=== PATIENT | female | born 1985 | race Caucasian/White ===

== ENCOUNTER 2018-04-16 08:26 | Observation (INO) ==
[2018-04-16 01:30] LABS: Basophils % 0.3 %; Eosinophils # 0.1 K/mcL (0.0-0.6); Eosinophils % 1.2 %; Hematocrit 33.2 % (35.3-44.9); Hemoglobin 11.2 g/dL (11.5-15.4); Immature Granulocytes % 1.4 % (0-4); Lymphocytes # 2.4 K/mcL (0.6-4.6); Lymphocytes % 22.9 %; Mean Corpuscular HGB Conc 33.7 g/dL (31.6-35.5); Mean Corpuscular Hemoglobin 29.8 pg (28.0-33.3); Mean Corpuscular Volume 88.3 fL (83.0-100.0); Mean Platelet Volume 9.7 fL (9.4-12.4); Monocytes # 0.5 K/mcL (0.0-1.3); Monocytes % 5.1 %; Neutrophils # 7.2 K/mcL (1.6-8.9); Platelet Count 234 K/mcL (140-400); Red Blood Count 3.76 M/mcL (3.82-4.97); Red Cell Distribution Width 13.1 % (11.5-14.5); Segmented Neutrophils % 69.1 %
[2018-04-16 01:42] LABS: Bilirubin,Urine Negative (Negative); Blood,Urine Negative (Negative); Clarity,Urine Cloudy (Clear); Glucose,Urine (UA) Normal (Normal); Ketones,Urine 15 mg/dL (Negative); Leukocyte Esterase,Urine Moderate (Negative); Nitrite,Urine Positive (Negative); PH,Urine 6.5 pH Units (5.0-8.0); Protein,Urine Negative (Neg-Trace); Specific Gravity,Urine 1.018 (1.010-1.025); Urobilinogen,Urine Normal (Normal)
[2018-04-16 01:43] LABS: Bacteria,Urine None Seen per hpf (None-Few); Hyaline Casts,Urine None Seen per lpf (None-Few); RBC,Urine 0-3 per hpf (0-3); Squamous Epithelial Cell,Urine Moderate per lpf (None-Few); WBC,Urine 15-30 per hpf (0-3)
[2018-04-16 01:45] LABS: Color,Urine Dark Yellow (Yellow)
[2018-04-16 01:47] LABS: BUN/Creatinine Ratio 15 (6-26); Blood Urea Nitrogen 11 mg/dL (6-20); Calcium 9.2 mg/dL (8.6-10.3); Carbon Dioxide 21 mEq/L (23-29); Chloride 105 mEq/L (98-107); Glucose 93 mg/dL (70-105); Osmolality,Calculated 281 (280-300); Potassium 3.6 mEq/L (3.5-5.1); Sodium 136 mEq/L (136-145); eGFR For Non-African Americans > 60 (> 60)
[2018-04-16 01:50] LABS: Amphetamine Screen,Urine Negative ng/mL (Cutoff=1000); Barbiturate Screen,Urine Negative ng/mL (Cutoff=200); Benzodiazepines Screen,Urine Negative ng/mL (Cutoff=200); Cannabinoid Screen,Urine Negative ng/mL (Cutoff = 50); Cocaine Screen,Urine Negative ng/mL (Cutoff= 300); Opiate Screen,Urine Negative ng/mL (Cutoff=300); Phencyclidine Screen,Urine Negative ng/mL (Cutoff=25)
--- NOTE | 2018-04-16 01:54 | OB/GYN Progress Note ---
Date of Encounter: 04/16/18 Time of Encounter: 01:52 - Assessment and Plan (1) 21 weeks gestation of Current Visit: Yes Status: Acute (2) with flank pain, antepartum Current Visit: Yes Status: Acute Plan of care made in collaboration with Dr. Nathan RODRÍGUEZ BMP Renal ultrasound to rule out kidney stones We will medicate with oral pain medicine at this time Subjective - Subjective Interval history: 21+6 weeks gestation presents to triage with complaints of abdominal and back pain. Patient initially presented to the emergency room stating she felt like she was in labor and needed to push and have a baby. Patient brought down to labor and delivery after ER evaluation, Dr. Kwan in ED stated he felt cervix felt closed and patient was not at that time. Patient states she was treated in urgent care yesterday for UTI, was placed on antibiotics. Today was at home approximately 8 PM laying in bed and felt sudden onset lower back and abdominal pain, they continue to increase in intensity, also with complaints of gush of fluid. Reports good movement, denies vaginal bleeding. Patient also reports symptoms of dysuria and frequency Antepartum ROS: loss of fluid, movement normal, contractions, no vaginal bleeding Objective - Vital Signs Vital Signs: Intake and Output 04/15/18 04/15/18 04/16/18 15:59 23:59 07:59 Other: Weight 126.552 kg Patient Weight 04/16/18 23:59 Weight 126.552 kg - Exam FHR comments: heart tones present at 150s Abdomen: Present: soft, gravid, tenderness (Uterine fundus tender to touch) Uterus: Present: normal Cervical dilation: Closed/thick/high Speculum exam shows normal white discharge of Comments: Patient complains of back pain anywhere back in touch, positive CVA tenderness on bilateral flanks - Labs Labs: Abnormal lab results RBC 3.76 M/mcL (3.82-4.97) L 04/16/18 00:50 Hgb 11.2 g/dL (11.5-15.4) L 04/16/18 00:50 Hct 33.2 % (35.3-44.9) L 04/16/18 00:50 Carbon Dioxide 21 mEq/L (23-29) L 04/16/18 00:50 Urine Clarity Cloudy (Clear) A 04/16/18 01:25 Urine Ketones 15 mg/dL (Negative) H 04/16/18 01:25 Urine Nitrite Positive (Negative) A 04/16/18 01:25 Ur Leukocyte Esterase Moderate (Negative) H 04/16/18 01:25 Urine Microscopic WBC 15-30 per hpf (0-3) H 04/16/18 01:25 Ur Squamous Epith Cells Moderate per lpf (None-Few) H 04/16/18 01:25 Ur Culture Indicated? YES (NO) A 04/16/18 01:25
--- NOTE | 2018-04-16 05:11 | OB/GYN Progress Note ---
Date of Encounter: 04/16/18 Time of Encounter: 05:04 - Assessment and Plan (1) 21 weeks gestation of Current Visit: Yes Status: Acute (2) with flank pain, antepartum Current Visit: Yes Status: Acute Plan of care made in collaboration with Dr. Evans US unable to show ureteral jets due to low volume in bladder, with stone seen on left, no left hydronephrosis, physiologic on right Aferile, with no elevated white count Will start IV fluid at 125 Continue macrobid po Retroperitoneum Ultrasound 04/16/18 01:20 IMPRESSION: Mild right hydronephrosis. No visualized right renal stone. Nonobstructing left nephrolithiasis, 2.4 cm calculus. Urinary bladder is nondistended. Laboratory Results - last 24 hr 04/16/18 04/16/18 04/16/18 00:50 00:50 01:25 WBC 10.4 RBC 3.76 L Hgb 11.2 L Hct 33.2 L MCV 88.3 MCH 29.8 MCHC 33.7 RDW 13.1 Plt Count 234 MPV 9.7 Immature Gran % 1.4 Seg Neutrophils % 69.1 Lymphocytes % 22.9 Monocytes % 5.1 Eosinophils % 1.2 Basophils % 0.3 Neutrophils # 7.2 Lymphocytes # 2.4 Monocytes # 0.5 Eosinophils # 0.1 Basophils # 0.0 Sodium 136 Potassium 3.6 Chloride 105 Carbon Dioxide 21 L BUN 11 Creatinine 0.75 Est GFR ( Amer) > 60 Est GFR (Non-Af Amer) > 60 BUN/Creatinine Ratio 15 Glucose 93 Calculated Osmolality 281 Calcium 9.2 Urine Color Urine Clarity Urine pH Ur Specific [place] Urine Protein Urine Glucose (UA) Urine Ketones Urine Blood Urine Nitrite Urine Bilirubin Urine Urobilinogen Ur Leukocyte Esterase Urine Microscopic RBC Urine Microscopic WBC Ur Squamous Epith Cells Urine Bacteria Hyaline Casts Ur Culture Indicated? Urine Opiates Screen Negative Ur Barbiturates Screen Negative Ur Phencyclidine Scrn Negative Ur Amphetamines Screen Negative U Benzodiazepines Scrn Negative Urine Cocaine Screen Negative U Marijuana (THC) Screen Negative Ur Drug Screen Interp See Below 04/16/18 01:25 WBC RBC Hgb Hct MCV MCH MCHC RDW Plt Count MPV Immature Gran % Seg Neutrophils % Lymphocytes % Monocytes % Eosinophils % Basophils % Neutrophils # Lymphocytes # Monocytes # Eosinophils # Basophils # Sodium Potassium Chloride Carbon Dioxide BUN Creatinine Est GFR ( Amer) Est GFR (Non-Af Amer) BUN/Creatinine Ratio Glucose Calculated Osmolality Calcium Urine Color Dark Yellow Urine Clarity Cloudy A Urine pH 6.5 Ur Specific [place] 1.018 Urine Protein Negative Urine Glucose (UA) Normal Urine Ketones 15 H Urine Blood Negative Urine Nitrite Positive A Urine Bilirubin Negative Urine Urobilinogen Normal Ur Leukocyte Esterase Moderate H Urine Microscopic RBC 0-3 Urine Microscopic WBC 15-30 H Ur Squamous Epith Cells Moderate H Urine Bacteria None Seen Hyaline Casts None Seen Ur Culture Indicated? YES A Urine Opiates Screen Ur Barbiturates Screen Ur Phencyclidine Scrn Ur Amphetamines Screen U Benzodiazepines Scrn Urine Cocaine Screen U Marijuana (THC) Screen Ur Drug Screen Interp Subjective - Subjective Interval history: Continues to have pain and discomfort, nausea with emesis, afebrile Antepartum ROS: movement normal, no loss of fluid, no vaginal bleeding, no contractions Objective - Vital Signs Vital Signs: Intake and Output 04/15/18 04/15/18 04/16/18 15:59 23:59 07:59 Other: Weight 126.552 kg Patient Weight 04/16/18 23:59 Weight 126.552 kg - Exam Comments: bilateral flank pain - Labs Labs: Abnormal lab results RBC 3.76 M/mcL (3.82-4.97) L 04/16/18 00:50 Hgb 11.2 g/dL (11.5-15.4) L 04/16/18 00:50 Hct 33.2 % (35.3-44.9) L 04/16/18 00:50 Carbon Dioxide 21 mEq/L (23-29) L 04/16/18 00:50 Urine Clarity Cloudy (Clear) A 04/16/18 01:25 Urine Ketones 15 mg/dL (Negative) H 04/16/18 01:25 Urine Nitrite Positive (Negative) A 04/16/18 01:25 Ur Leukocyte Esterase Moderate (Negative) H 04/16/18 01:25 Urine Microscopic WBC 15-30 per hpf (0-3) H 04/16/18 01:25 Ur Squamous Epith Cells Moderate per lpf (None-Few) H 04/16/18 01:25 Ur Culture Indicated? YES (NO) A 04/16/18 01:25
[~2018-04-16 08:26] MED LIST: *HR* Morphine 2 MG/ML SYRINGE IVP PRN; *HR* OxyCODONE/APAP 5/325 TABLET PO ONE; Nitrofurantoin (BID) 100 MG CAPSULE PO SCH; Ondansetron 4 MG/2 ML VIAL IM ONE; Ondansetron 4 MG/2 ML VIAL IVP ONE; Ringers Solution, Lactated 1,000 ML IVC SCH
--- NOTE | 2018-04-16 09:40 | Urology - Consult Note ---
Addendum entered and electronically signed by Kwabena Barrientos MD 04/16/18 11:36: The patient was seen and examined with the physician's medical record assistant. I agree with the assessment and plan. This is a 33-year-old woman who is currently about 22 weeks . She presented with right flank pain which has become more severe. She had a renal ultrasound which showed right-sided hydronephrosis. Within the left kidney there appears to be a large renal stone, but no evidence of hydronephrosis. We discussed options. I reviewed further workup with a KUB versus low-dose CT scan. We discussed that she might have a stone that she could pass and could consider conservative therapy. We also discussed transfer to a tertiary care center. At 22 weeks her fetus may be viable. Our hospital policy is to avoid any anesthesia in patients from 22 weeks until 36 weeks gestation. Therefore, at this institution and we would not be able to perform any treatment such as a ureteroscopic stone extraction or stent placement. After this discussion, she would like to proceed with transfer to a tertiary center. Continue antibiotic. Await final results of urine culture. Thank you for allowing me to pursue a and this patient's care. Original Note: Date of Encounter: 04/16/18 Time of Encounter: 09:10 - Assessment and Plan (1) Nephrolithiasis Current Visit: Yes Status: Acute Assessment and plan: Patient is a 33-year-old female who presents with nephrolithiasis. Renal ultrasound suggests a 2.4 cm left renal calculus that is nonobstructing. Patient's pain is localized to the right flank. We may discuss definitive stone extraction for the left stone burden when the patient is . (2) with flank pain, antepartum Current Visit: Yes Status: Acute Assessment and plan: Patient is a 33-year-old female who presents with history of right flank pain and mild hydronephrosis. Discussed renal ultrasound is not the preferred method for identifying ureteral calculi. Patient has a known history of renal stones and states she was informed by an outside urologist regarding bilateral renal stones. We will continue with IV fluids, Tylenol and antibiotics. Dr. Javier oliva will reevaluate patient and provide stone treatment options. (3) 22 weeks gestation of Current Visit: Yes Status: Acute (4) UTI (urinary tract infection) in in second trimester Current Visit: Yes Status: Acute Assessment and plan: Patient is a 33-year-old female who presents with a urinary tract infection, c ulture positive for gram-positive cocci. Patient is currently taking Macrobid, which is less likely to be susceptible gram-positive cocci bacteria. Expressed concern to scooping machine tender as well as to the patient for ascending group B strep urinary tract infection. Vital signs are currently stable and afebrile. White blood cell count is reassuring. I do recommend stopping Macrobid and starting clindamycin for GBS prophylaxis at least until final urine culture sensitivity report is resulted. Patient is allergic to both penicillins and cephalosporins. Urology CN:[facility] Consult date: 04/16/18 Reason for consult Urology: Hydronephrosis (right flank pain) History of present illness: Patient is a 33-year-old female who presents at 22 weeks EGA with right flank pain and history of nephrolithiasis. Patient states she started experiencing UTI symptoms 2 days ago and was instructed by after hours SENIOR JAVA ARCHITECT to go to urgent care for urine culture. Patient was given oral Macrobid and has been taking this twice daily for 2 days. Patient states right flank pain acutely worsened yesterday and was accompanied by intractable nausea and vomiting. Patient presented to the emergency department and was subsequently transferred to the antepartum unit. Patient reports good movement and denies any vaginal bleeding, right upper quadrant pain, loss of fluid, vaginal discharge or contractions. Patient states she experienced gross hematuria 2-3 days ago but has not experienced this since. Patient reports she was diagnosed with renal stones approximately 1 year ago by a urologist in [place], but she failed to pursue further treatment. Patient underwent a renal ultrasound revealing mild right-sided hydronephrosis and a 2.4 cm stone burden that is nonobstructing in the left kidney. Preliminary urine culture from 04/14/2018 shows gram-positive cocci. Patient admits to a history of group B strep with her last . Patient states she is experienced an Escherichia coli urinary tract infection earlier in this as well. Past Med Surg Social Fam HX - Past Medical History Medical history: non-contributory Psychiatric history: no psych history - Past Surgical History Surgical History: Additional surgical history: t&a - Social History Smoking Status: Never smoker Smokeless Tobacco Status: No Alcohol use: none Drug use: none - Family History Mother Living Status: Still Living Hx Family Cardiac Disorders: No Hx Family Respiratory Disorders: No Hx Family Cancer: No Hx Family GI Disorders: No Hx Family Genitourinary Disorders: No Hx Family Endocrine Disorder: No Hx Family Musculoskeletal Disorders: No Hx Family Neuromuscular Disorders: No Hx Family Neurologic Disorders: No Hx Family HEENT Disorders: No Hx Family Autoimmune Disorders: No Hx Family Reproductive Disorders: No Hx Family Psychosocial Disorders: No Hx Family Medical Disorders: No Medications and Allergies Vit Calc,Iron,Folic [ Vitamins] 1 each PO DAILY #90 tablet 12/18/17 [Rx] Levothyroxine 50 mg 04/16/18 [History] Allergy/AdvReac Type Severity Reaction Status Date / Time cephalexin Allergy Diarrhea Verified 12/19/17 20:09 guaifenesin [From Mucinex] Allergy Difficulty Verified 02/18/18 01:18 Breathing Penicillins [PCN] Allergy Rash Verified 12/19/17 20:09 mycins Allergy Rash Uncoded 12/30/16 18:55 Review of Systems - Constitutional chills, no fatigue, no fever(s) - EENT Nose, mouth and throat: no dizziness, no headache(s) - Cardiovascular no chest pain, no dyspnea - Respiratory no cough, no dyspnea - Gastrointestinal nausea, vomiting, no abdominal pain, no change in bowel habits - Genitourinary Genitourinary: dysuria, flank pain, hematuria, no abnormal vaginal bleeding, no difficulty urinating, no difficulty voiding, no urinary frequency, no urinary hesitancy, no urinary incontinence, no urinary urgency, no vaginal discharge Menstruation: other (22 weeks EGA) - Musculoskeletal back pain, no muscle weakness - Integumentary no erythema, no rash - Neurological no confusion, no syncope - Psychiatric no anxiety, no confusion - Hematologic/Lymphatic no easy bleeding, no easy bruising - Allergic/Immunologic no throat swelling, no wheezing Exam - General physical appearance Present: well developed, no distress, no pain - Eyes Present: PERRL, normal ocular movement - ENT Present: normal nares, no hearing loss, no congestion - Neck Present: no masses, trachea midline - Respiratory Present: normal respiratory effort - Abdomen Abdomen: Present: soft, tender (right CVAT) - Integumentary Present: no rash, no growths - Neurologic Present: normal coordination Urology Results - Labs 04/16/18 00:50 04/16/18 00:50 Abnormal lab results RBC 3.76 M/mcL (3.82-4.97) L 04/16/18 00:50 Hgb 11.2 g/dL (11.5-15.4) L 04/16/18 00:50 Hct 33.2 % (35.3-44.9) L 04/16/18 00:50 Carbon Dioxide 21 mEq/L (23-29) L 04/16/18 00:50 Urine Clarity Cloudy (Clear) A 04/16/18 01:25 Urine Ketones 15 mg/dL (Negative) H 04/16/18 01:25 Urine Nitrite Positive (Negative) A 04/16/18 01:25 Ur Leukocyte Esterase Moderate (Negative) H 04/16/18 01:25 Urine Microscopic WBC 15-30 per hpf (0-3) H 04/16/18 01:25 Ur Squamous Epith Cells Moderate per lpf (None-Few) H 04/16/18 01:25 Ur Culture Indicated? YES (NO) A 04/16/18 01:25 Diabetes panel 04/16/18 Range/Units 00:50 Sodium 136 (136-145) mEq/L Potassium 3.6 (3.5-5.1) mEq/L Chloride 105 (98-107) mEq/L Carbon Dioxide 21 L (23-29) mEq/L BUN 11 (6-20) mg/dL Creatinine 0.75 (0.60-1.20) mg/dL Glucose 93 (70-105) mg/dL Calcium 9.2 (8.6-10.3) mg/dL Calcium panel 04/16/18 Range/Units 00:50 Calcium 9.2 (8.6-10.3) mg/dL Pituitary panel 04/16/18 Range/Units 00:50 Sodium 136 (136-145) mEq/L Potassium 3.6 (3.5-5.1) mEq/L Chloride 105 (98-107) mEq/L Carbon Dioxide 21 L (23-29) mEq/L BUN 11 (6-20) mg/dL Creatinine 0.75 (0.60-1.20) mg/dL Glucose 93 (70-105) mg/dL Calcium 9.2 (8.6-10.3) mg/dL Adrenal panel 04/16/18 Range/Units 00:50 Sodium 136 (136-145) mEq/L Potassium 3.6 (3.5-5.1) mEq/L Chloride 105 (98-107) mEq/L Carbon Dioxide 21 L (23-29) mEq/L BUN 11 (6-20) mg/dL Creatinine 0.75 (0.60-1.20) mg/dL Glucose 93 (70-105) mg/dL Calcium 9.2 (8.6-10.3) mg/dL All other labs normal. - Imaging US - kidney/bladder: report reviewed, image reviewed
[2018-04-16 09:59] VITALS: BP 117/79
--- NOTE | 2018-04-16 12:17 | Event Note ---
Date of Encounter: 04/16/18 Time of Encounter: 12:13 After discussing patient's case with Dr Green, Dr Barrientos, self, and patient, patient requests transfer of care to [facility]. Patient has had anaphylaxis to 2 antibiotics in the past and although it is recommended that she starts clindamycin, patient would like to start at [facility] due to the increased level in NICU care if she has an anaphylactic reaction to clindamycin (she has previously had a severe hive reaction to it in the past). Her pain is not well controlled without IV pain medication; she is afebrile. She has had 2 previous UTIs in this . She is seen by Dr Tenorio for her care. Dr Carlos Louis at [facility] has accepted her for transfer as of 04/16/18 at 1200 noon.
== END 2018-04-16 13:12 | disposition other institution (70) ==
LOC: 1NENULAB → 1NENUOBS 08:26
PROVIDERS: ADMIT Advanced Practice Midwife; ATTEND Advanced Practice Midwife

== ENCOUNTER → 2018-07-15 11:10 | Observation (INO) ==
[2018-07-15 09:52] LABS: Basophils # 0.1 K/mcL (0.0-0.2); Basophils % 0.5 %; Eosinophils # 0.1 K/mcL (0.0-0.6); Eosinophils % 1.1 %; Hematocrit 34.8 % (35.3-44.9); Hemoglobin 11.7 g/dL (11.5-15.4); Immature Granulocytes % 1.1 % (0-4); Mean Corpuscular HGB Conc 33.6 g/dL (31.6-35.5); Mean Corpuscular Hemoglobin 30.4 pg (28.0-33.3); Mean Corpuscular Volume 90.4 fL (83.0-100.0); Mean Platelet Volume 9.8 fL (9.4-12.4); Monocytes # 0.5 K/mcL (0.0-1.3); Monocytes % 4.8 %; Neutrophils # 8.1 K/mcL (1.6-8.9); Platelet Count 249 K/mcL (140-400); Red Blood Count 3.85 M/mcL (3.82-4.97); Red Cell Distribution Width 14.1 % (11.5-14.5); Segmented Neutrophils % 74.5 %
[2018-07-15 09:55] LABS: Bilirubin,Urine Negative (Negative); Blood,Urine Small (Negative); Color,Urine Yellow (Yellow); Glucose,Urine (UA) Normal (Normal); Ketones,Urine Negative (Negative); Leukocyte Esterase,Urine Small (Negative); Nitrite,Urine Negative (Negative); PH,Urine 6.5 pH Units (5.0-8.0); Protein,Urine Negative (Neg-Trace); Specific Gravity,Urine < 1.005 (1.010-1.025); Urobilinogen,Urine Normal (Normal)
[2018-07-15 09:58] LABS: Bacteria,Urine Few per hpf (None-Few); Hyaline Casts,Urine None Seen per lpf (None-Few); Squamous Epithelial Cell,Urine Many per lpf (None-Few); WBC,Urine 15-30 per hpf (0-3)
[2018-07-15 10:01] LABS: Clarity,Urine Slightly Hazy (Clear)
[2018-07-15 10:06] LABS: Amphetamine Screen,Urine Negative ng/mL (Cutoff=1000); Barbiturate Screen,Urine Negative ng/mL (Cutoff=200); Benzodiazepines Screen,Urine Negative ng/mL (Cutoff=200); Cannabinoid Screen,Urine Negative ng/mL (Cutoff = 50); Cocaine Screen,Urine Negative ng/mL (Cutoff= 300); Creatinine,Urine 111 mg/dL; Opiate Screen,Urine Negative ng/mL (Cutoff=300); Phencyclidine Screen,Urine Negative ng/mL (Cutoff=25); Protein/Creatinine Ratio,Urine 0.19 mg/mg (0.00-0.20)
[2018-07-15 10:50] LABS: Alanine Aminotransferase 7 Units/L (7-52); Aspartate Amino Transferase 15 Units/L (13-39); BUN/Creatinine Ratio 12 (6-26); Blood Urea Nitrogen 7 mg/dL (6-20); Lactate Dehydrogenase 199 Units/L (140-271); Uric Acid 5.9 mg/dL (2.3-7.6); eGFR For Non-African Americans > 60 (> 60)
--- NOTE | 2018-07-15 11:18 | OB/GYN Progress Note ---
Date of Encounter: 07/15/18 Time of Encounter: 11:15 - Assessment and Plan (1) 34 weeks gestation of Current Visit: Yes Status: Acute (2) Facial swelling Current Visit: Yes Status: Acute Face symptoms swelling resolved by admission. Normotensive. PIH labs negative. Discharged home with labor and when to return to triage precautions. Patient verbalizes understanding Subjective - Subjective Interval history: 34+5 weeks gestation presents to triage with complaints of facial swelling from nose to cheek on the right-hand side when waking up this morning, bilateral some swelling and wrist pain when awakening, denies headache, or blurry vision, does see bright floaters and visual field on occasion. Reports good movement, denies vaginal bleeding or leaking of fluid or contractions Antepartum ROS: movement normal, other, no loss of fluid, no vaginal bleeding, no contractions Objective - Vital Signs Vital Signs: Intake and Output 07/14/18 07/15/18 07/15/18 23:59 07:59 15:59 Other: Weight 127.323 kg Patient Weight 07/15/18 23:59 Weight 127.323 kg - Exam FHR: auscultation normal FHR comments: Baseline 135 Cervical dilation: Closed/thick/high - Labs Labs: Abnormal lab results Hct 34.8 % (35.3-44.9) L 07/15/18 09:20 0.57 mg/dL (0.60-1.20) L 07/15/18 09:20 Ur Specific [place] < 1.005 (1.010-1.025) L 07/15/18 09:20 Small (Negative) H 07/15/18 09:20 Ur Leukocyte Esterase Small (Negative) H 07/15/18 09:20 3-5 per hpf (0-3) H 07/15/18 09:20 15-30 per hpf (0-3) H 07/15/18 09:20 Ur Squamous Epith Cells Many per lpf (None-Few) H 07/15/18 09:20 21 mg/dL (1-14) H 07/15/18 09:25
== END | disposition home or self-care (01) ==
LOC: 1NENULAB
PROVIDERS: ADMIT Student in an Organized Health Care Education/Training Program; ATTEND Student in an Organized Health Care Education/Training Program

== ENCOUNTER 2018-08-17 05:35 | Inpatient (IN) ==
[2018-08-17] MEDS ORDERED: Famotidine 20 MG/2 ML VIAL IVP PRN (05:57)
[2018-08-17] MEDS ORDERED: Ondansetron 4 MG/2 ML VIAL IVP PRN ×3 (05:57→11:37)
[2018-08-17] MEDS ORDERED: Metoclopramide 10 MG/2 ML VIAL IVP PRN ×2 (05:57→11:37)
[2018-08-17] MEDS ORDERED: Naloxone 0.4 MG/ML INJ IVP PRN (05:57)
[2018-08-17] MEDS ORDERED: Ringers Solution, Lactated 1,000 ML IVC SCH (06:00)
[2018-08-17 06:50] LABS: Basophils % 0.3 %; Eosinophils # 0.1 K/mcL (0.0-0.6); Hematocrit 35.5 % (35.3-44.9); Hemoglobin 11.8 g/dL (11.5-15.4); Immature Granulocytes % 0.9 % (0-4); Lymphocytes # 2.5 K/mcL (0.6-4.6); Lymphocytes % 21.4 %; Mean Corpuscular HGB Conc 33.2 g/dL (31.6-35.5); Mean Corpuscular Hemoglobin 29.3 pg (28.0-33.3); Mean Corpuscular Volume 88.1 fL (83.0-100.0); Mean Platelet Volume 9.7 fL (9.4-12.4); Monocytes # 0.6 K/mcL (0.0-1.3); Monocytes % 5.1 %; Neutrophils # 8.2 K/mcL (1.6-8.9); Platelet Count 269 K/mcL (140-400); Red Blood Count 4.03 M/mcL (3.82-4.97); Red Cell Distribution Width 13.6 % (11.5-14.5); Segmented Neutrophils % 71.3 %; White Blood Count 11.5 K/mcL (4.3-11.1)
[2018-08-17 07:00] LABS: Amphetamine Screen,Urine Negative ng/mL (Cutoff=1000); Barbiturate Screen,Urine Negative ng/mL (Cutoff=200)
[2018-08-17 07:01] LABS: Benzodiazepines Screen,Urine Negative ng/mL (Cutoff=300); Cannabinoid Screen,Urine Negative ng/mL (Cutoff = 50); Cocaine Screen,Urine Negative ng/mL (Cutoff= 300); Opiate Screen,Urine Negative ng/mL (Cutoff=300); Phencyclidine Screen,Urine Negative ng/mL (Cutoff=25)
--- NOTE | 2018-08-17 07:01 | Anesthesia Evaluation PreOp ---
Date of Encounter: 08/17/18 Time of Encounter: 06:59 - Past History Planned Operation: Repeat C section Cardiac History: Denies any Significant Hx Pulmonary History: Denies Any Significant HX DUTY ENGINEER History: Denies Any Significant HX Other Medical History: Renal (stones), Thyroid, GERD Anesthesia History: No Prior Anesthetic Complications, Past Anesthesia (csx4, tonsil) : Yes Test: Positive Alcohol Use: none Drug use: none Medications and Allergies Vit Calc,Iron,Folic [ Vitamins] 1 each PO DAILY #90 tablet 12/18/17 [Rx] Levothyroxine 0.5 mg PO DAILY 04/16/18 [History] Allergy/AdvReac Type Severity Reaction Status Date / Time azithromycin [From Zithromax] Allergy Hives Verified 08/17/18 06:13 cephalexin Allergy Anaphylaxis Verified 07/15/18 09:09 clindamycin Allergy Hives Verified 08/17/18 06:13 Erythromycin Base Allergy Hives Verified 08/17/18 06:13 guaifenesin [From Mucinex] Allergy Difficulty Verified 02/18/18 01:18 Breathing Penicillins [PCN] Allergy Rash Verified 12/19/17 20:09 mycins Allergy Anaphylaxis Uncoded 08/17/18 06:13 - Meds/Allergy Pre-op Review Medications Reviewed: Yes Allergies Reviewed: Yes Beta Blockers on Current Med List: No Anesthesia Results - Labs 08/17/18 06:25 Anesthesia Exam Vital Signs/O2 Sat, Most Current Pulse Resp BP 112 15 122/73 08/17/18 06:15 08/17/18 06:15 08/17/18 06:15 Height: 5'6" Weight: 130k NPO (# of Hours): 8 Pain Scale: 1 Pain Scale Used: Numeric (1 - 10) - HEENT Pupil (Motor): Pupils equal Mallampati: III Teeth: Missing Oral Opening: Greater than 3 - DUTY ENGINEER LOC: Oriented DUTY ENGINEER Motor: Normal RUE, Normal LUE, Normal RLE, Normal LLE, Normal Face DUTY ENGINEER Sensory: Normal: RUE, LUE, RLE, LLE, Face - Cardiac Rhythm: Regular Murmur: None - Pulmonary Breath Sounds: bilateral Clear Respiratory Effort: Symmetrical Anesthesia Assess/Plan ASA Score: 3 Level of consciousness: Cooperative Anesthetic Plan: Spinal (risks discussed, questions answered, consented) Autologous Blood: No Monitoring Plan: Standard Monitors Recovery Plan: PACU
[2018-08-17] MEDS ORDERED: *HR* Morphine Sulfate/PF 10 MG/10 ML AMPUL ONE (07:06)
[2018-08-17] MEDS ORDERED: *HR* Oxytocin 10 UNIT/ML VIAL IM ONE (07:06)
[2018-08-17] MEDS ORDERED: *HR* FentaNYL (PF) 100 MCG/2 ML VIAL ONE (07:06)
--- NOTE | 2018-08-17 07:15 | OB/GYN History & Physical ---
Date of Encounter: 08/17/18 Time of Encounter: 07:12 Assessment and Plan (1) Nephrolithiasis Current visit: No Status: Acute (2) 39 weeks gestation of Current visit: Yes Status: Acute (3) Previous section Current visit: Yes Status: Acute (4) Encounter for sterilization Current visit: Yes Status: Acute (5) Delivery by (planned) section occurring after 37 completed weeks of gestation but before 39 completed weeks gestation due to (spontaneous) onset of labor, with mention of complication Current visit: Yes Status: Acute History of Present Illness Chief complaint: repeat HPI: Ms. Francois is a 33 year old female who presents today for a section and tubal ligation. She is doing well. She is having no complaints of any kind today. She denies issues with her breasts. She denies gynecologic infection or discharge. She is having no abnormal bleeding. There are no issues with her bowels or bladder. Baby is been very active. This patient has been noncompliant throughout her . Induction of her multiple visits. She has allergies to Zithromax, penicillin, erythromycin, latex, clindamycin and Keflex. We had discussion about antibiotic today. She states that she did well with the clindamycin at [facility] when she was given it. Since that she take Benadryl with it had no problems. Current medications include vitam ins, levothyroxine, Benadryl. Chronic medical conditions include history of pyelonephritis, kidney stones anxiety, bipolar disorder and acquired hypothyroidism surgical history includes 4 previous sections, wisdom teeth extraction, tonsillectomy, bilateral eye surgery, colon surgery as a child family history significant for hypertension and heart disease and mental illness. Past Med Surg Social Fam HX - Past Medical History Medical history: no medical history Additional medical history: hypothyroidism during Psychiatric history: anxiety, PTSD - Past Surgical History Surgical History: Additional surgical history: t&a, eye surgery as a child, wisdom teeth, tonsil abcess - Social History Smoking Status: Former smoker Smokeless Tobacco Status: No Alcohol use: none Drug use: none - Family History Mother Living Status: Still Living Hx Family Cardiac Disorders: No Hx Family Respiratory Disorders: No Hx Family Cancer: No Hx Family GI Disorders: No Hx Family Genitourinary Disorders: No Hx Family Endocrine Disorder: No Hx Family Musculoskeletal Disorders: No Hx Family Neuromuscular Disorders: No Hx Family Neurologic Disorders: No Hx Family HEENT Disorders: No Hx Family Autoimmune Disorders: No Hx Family Reproductive Disorders: No Hx Family Psychosocial Disorders: No Hx Family Medical Disorders: No Obstetrical History - Pregnancies : 7 Para: 4 Term: 4 Ab's: 2 Livin Medications and Allergies Vit Calc,Iron,Folic [ Vitamins] 1 each PO DAILY #90 tablet 12/18/17 [Rx] Levothyroxine 0.5 mg PO DAILY 04/16/18 [History] Allergy/AdvReac Type Severity Reaction Status Date / Time azithromycin [From Zithromax] Allergy Hives Verified 08/17/18 06:13 cephalexin Allergy Anaphylaxis Verified 07/15/18 09:09 clindamycin Allergy Hives Verified 08/17/18 06:13 Erythromycin Base Allergy Hives Verified 08/17/18 06:13 guaifenesin [From Mucinex] Allergy Difficulty Verified 02/18/18 01:18 Breathing Penicillins [PCN] Allergy Rash Verified 12/19/17 20:09 mycins Allergy Anaphylaxis Uncoded 08/17/18 06:13 Review of System OB All systems PM: reviewed and no additional remarkable complaints except as stated Exam - Vital Signs Vital signs: Initial Vital Signs Pulse Resp BP 112 15 122/73 08/17/18 06:15 08/17/18 06:15 08/17/18 06:15 - Constitutional Constitutional: well developed, well nourished, no acute distress, obese - HEENT HEENT: EOMI, PERRL, Normocephaly - Neck Neck exam: full ROM - Lungs Respiratory exam: CTAB - Cardiovascular Cardiovascular exam: RRR - Abdomen Abdomen: Present: bowel sounds normal, gravid, non tender - Extremities Extremities exam: full ROM - Vagina Vagina: Present: normal moisture Results Result Diagrams: 08/17/18 06:25 Abnormal lab results WBC 11.5 K/mcL (4.3-11.1) H 08/17/18 06:25 All other labs normal. - VTE Reasons for not Prescribing Prophylaxis: Treatment not Indicated - Low risk for VTE
--- NOTE | 2018-08-17 07:26 | Anesthesia Procedures ---
Date of Encounter: 08/17/18 Time of Encounter: 08:14 Procedures: Anesthesia - Epidural/Spinal Patient ID/Chart reviewed: Yes Patient examined: Yes OB Eval: Gestational age: 39 OB Eval: : 5 OB Eval: Hx Para: 4 OB Eval: Dilated at (cm): 1 OB Eval: Contractions: Non-stressed pattern Consent Obtained: Yes Supplemental Oxygen: Nasal Cannula Supplemental Oxygen Rate (L/min): 3 Site Prep: Aseptic Technique, Sterile prep and drape, 0.5% Chlorhexidine/Alcohol Patient position: upright Local Anesthetic: Lidocaine 1% Amount of Local Anesthetic used: 3 Interspace Used: L2-L3 Loss of Resistance (KATY): No Blood: No CSF: Yes Paresthesia: No Spinal Needle Gauge: 25 Spinal Dose: marcaine 12mg, morphine 0.25 mg, fentanyl 10 mcg Procedure: aseptic, lorelei well, VSS, effective Vitals + FHT's: 108/78 98 16 fht 140
[2018-08-17] MEDS ORDERED: Clindamycin 900 MG/50 ML 900 MG/50 ML IV.SOLN IVPB ONE (07:31)
[2018-08-17] MEDS ORDERED: Ringers Solution, Lactated 1,000 ML ONE (07:53)
[2018-08-17] MEDS ORDERED: EPHEDrine 50 MG/ML VIAL ONE (07:54)
[2018-08-17] MEDS ORDERED: *HR* Meperidine 25 MG/ML SYRINGE IVP PRN (08:24)
[2018-08-17] MEDS ORDERED: Acetaminophen IV 1,000 MG/100 ML INFUS..BTL IVPB ONE (08:24)
[2018-08-17] MEDS ORDERED: *HR* HYDROmorphone (PF) 1 MG/ML SYRINGE IVP PRN (08:24)
--- NOTE | 2018-08-17 09:03 | OB/GYN Procedure Note ---
Section - Date of procedure: 08/17/18 Preop diagnosis: desires repeat , desires sterilization Post-op diagnosis: same Procedure: repeat low transverse, bilateral tubal ligation Surgeon: Ted Tenorio Quantitated Blood Loss: 400 Was there an culture media laboratory assistant present: Yes Toter: Katie Byers Twine Winder: Anoop Kiran Anesthesia Type: General section complications: none Disposition: PACU Specimens: Placenta, Right tube segment, Left tube segment - (s) Infant A Infant Delivery Date: 08/17/18 Infant Delivery Time: 08:10 Presentation: vertex Position: OA Route of delivery: other Gender: Male Viability: Viable Pounds: 7 Ounces: 3 Gram Weight: 3.265 kg at 1 minute: 8 at 5 minutes: 9 Specimens collected: cord blood Placenta: spontaneous Cord: 3 umbilical vessels - Narrative Narrative: This patient was taken to the operating room with IV in place. She was then placed on table given spinal anesthesia. Once adequate analgesia was achieved patient was prepped and draped in the usual sterile fashion. Patient's abdomen was taped up. We then proceeded with a Pfannenstiel incision through patient's previous scar. Was carried sharply through the subtenons fatty tissue until the fascial layers reached. The fascia was then nicked in the midline incised bilaterally with the scissors. It was then dissected vertically for exposure. Rectus abdominis musculature was midline. There were dense adhesions at this point. Using a knife blade we were able to get in through the scar tissue and into the abdominal cavity. This area was then bluntly extended. There was excellent hemostasis throughout this entire procedure. A bladder blade was placed at the inferior margin incision. Bladder flap was developed. Bladder blade was placed over the bladder flap and a low transverse incision was then made in the lower uterine segment. Fluid was noted be clear. The 's head was then delivered without difficulty. Breast-feeding was then delivered. The cried immediately upon delivery cord was cut to cut after the cord stopped pulsating. was passed to nurse and has. Cord bloods obtained. Placenta was delivered via uterine massage. There was then uterine lavage. The uterus contracted down nicely. The incision was then closed the Vicryl suture running locking fashion. 2 [id number]'s were placed bilaterally hemostasis. The uterus was placed the pelvic cavity. The pelvic cavity was rinsed thoroughly sterile water 2, all bleeders cauterized. Seeing no bleeding the procedure was terminated. Sponge needle and instrument counts correct 2. The fascia was closed with loop 0 PDS. The suprafascial region was rinsed thoroughly with sterile water 2, all bleeders cauterized. Skin was closed with pino. Because the patient's size a CHARLIE dressing was placed. The blood loss 400 mL patient delivered a male infant weight was 7 lbs. 3 oz. Apgars are 8 at 1 m inute and 9 at 5 minutes.
[2018-08-17] MEDS ORDERED: Oxytocin 20 units/ LR 1000 mL 20 UNIT/1,000 ML BAG IVC ONE (11:01)
[2018-08-17] MEDS ORDERED: Sennosides 8.6 MG TABLET PO PRN (11:37)
[2018-08-17] MEDS ORDERED: Simethicone 80 MG TAB.CHEW PO PRN (11:37)
[2018-08-17] MEDS ORDERED: Oxytocin 20 units/ LR 1000 mL 20 UNIT/1,000 ML BAG IVC SCH (11:37)
--- NOTE | 2018-08-17 11:42 | Anesthesia Evaluation Post Op ---
Date of Encounter: 08/17/18 Time of Encounter: 11:40 - Vital Signs Vital Signs: Vital Signs/O2 Sat, Most Current Pulse Resp BP 112 15 122/73 08/17/18 06:15 08/17/18 06:15 08/17/18 06:15 - Lungs Lungs: Clear Ascult./Percussion - Airway Airway: Non-obstructed - Cardiovascular Regular Rate - Mental Status Mental Status: Alert & Oriented, Answers Appropriately - Pain Pain Scale: 3 Pain Scale used: Numeric (1 - 10) - Nausea Vomiting Nausea Vomiting: Not Present - Hydration Hydration: NPO, Jeong catheter Notes: 08/17/18 11:41 some itching, minimal pain - Discharge PostOp Status: Transfer Patient to floor
[2018-08-17] MEDS: Clindamycin 900 MG/50 ML 900 MG/50 ML IV.SOLN IVPB SCH (16:37)
[2018-08-17] MEDS: *HR* OxyCODONE/APAP 5/325 TABLET PO PRN (19:23)
[2018-08-17] MEDS: Ibuprofen 600 MG TABLET PO PRN (19:48)
[2018-08-18] MEDS: Clindamycin 900 MG/50 ML 900 MG/50 ML IV.SOLN IVPB SCH ×2 (00:07→09:14)
[2018-08-18] MEDS: *HR* OxyCODONE/APAP 5/325 TABLET PO PRN ×4 (03:26→20:39)
[2018-08-18] MEDS: Ibuprofen 600 MG TABLET PO PRN ×3 (03:26→21:12)
[2018-08-18 05:45] LABS: Basophils % 0.2 %; Eosinophils # 0.2 K/mcL (0.0-0.6); Eosinophils % 1.8 %; Hematocrit 29.9 % (35.3-44.9); Immature Granulocytes % 1.1 % (0-4); Lymphocytes # 1.8 K/mcL (0.6-4.6); Lymphocytes % 21.3 %; Mean Corpuscular HGB Conc 31.8 g/dL (31.6-35.5); Mean Corpuscular Hemoglobin 29.3 pg (28.0-33.3); Mean Corpuscular Volume 92.3 fL (83.0-100.0); Monocytes # 0.4 K/mcL (0.0-1.3); Monocytes % 4.9 %; Neutrophils # 6.1 K/mcL (1.6-8.9); Platelet Count 207 K/mcL (140-400); Red Blood Count 3.24 M/mcL (3.82-4.97); Red Cell Distribution Width 13.7 % (11.5-14.5); Segmented Neutrophils % 70.7 %; White Blood Count 8.6 K/mcL (4.3-11.1)
[2018-08-18 05:47] LABS: Hemoglobin 9.5 g/dL (11.5-15.4)
[2018-08-18] MEDS: Prenatal Vit/FA 1 EACH TABLET PO SCH (09:16)
--- NOTE | 2018-08-18 11:10 | OB/GYN Progress Note ---
Date of Encounter: 08/18/18 Time of Encounter: 11:07 - Assessment and Plan (1) S/P section Current Visit: Yes Status: Acute Pt meeting POD1 milestones. Pt to ambulate in hallway today. Await passage of flatus. Anticipate discharge home POD2. (2) Breast feeding status of mother Current Visit: Yes Status: Acute (3) S/P tubal ligation Current Visit: Yes Status: Acute Subjective - Subjective Interval history: Pt reports feeling well. She is not yet passing flatus but is tolerating a regular diet. Patient reports: appetite normal, voiding normally, pain well controlled, ambulating normally : doing well, nursing well Objective - Vital Signs Latest vital signs: Vital Signs Temp Pulse Resp BP Pulse Ox 08/18/18 08:33 98.0 F 100 14 126/56 98 08/18/18 03:00 97.9 F 69 16 108/74 100 08/18/18 00:09 98.2 F 111 14 108/60 99 08/17/18 19:37 98.3 F 108 16 104/69 98 08/17/18 16:05 98.2 F 108 12 104/63 98 08/17/18 14:15 98.1 F 101 17 97/59 99 08/17/18 13:15 106 16 108/64 97 08/17/18 12:15 105 16 100/53 98 08/17/18 11:45 107 16 112/59 98 08/17/18 11:15 97.7 F 112 18 108/66 98 Intake and Output 08/17/18 08/18/18 08/18/18 23:59 07:59 15:59 Intake Total 1300 / 1300 Output Total 750 / 750 700 / 700 Balance -750 / -750 600 / 600 Intake: Oral 1300 / 1300 Output: Urine 700 / 700 Catheter 750 / 750 Other: Meal Dinner Percent of Meal Consumed 80% Stool Characteristics Normal for Patient Weight 127.278 kg Patient Weight 08/18/18 23:59 Weight 127.278 kg - Exam Lungs: bilateral: normal Chest: Normal S1, Normal S2 Extremities: Present: normal Abdomen: Present: soft Incision: Present: dressed (CHARLIE dry and intact) Uterus: Present: firm - Labs Labs: Laboratory Results - last 24 hr 08/18/18 05:00 WBC 8.6 RBC 3.24 L Hgb 9.5 L D Hct 29.9 L MCV 92.3 MCH 29.3 MCHC 31.8 RDW 13.7 Plt Count 207 MPV 10.0 Immature Gran % 1.1 Seg Neutrophils % 70.7 Lymphocytes % 21.3 Monocytes % 4.9 Eosinophils % 1.8 Basophils % 0.2 Neutrophils # 6.1 Lymphocytes # 1.8 Monocytes # 0.4 Eosinophils # 0.2 Basophils # 0.0
[2018-08-19] MEDS: Ibuprofen 600 MG TABLET PO PRN ×2 (03:54→14:39)
[2018-08-19] MEDS: *HR* OxyCODONE/APAP 5/325 TABLET PO PRN ×3 (03:55→17:25)
[2018-08-19] MEDS: Prenatal Vit/FA 1 EACH TABLET PO SCH (07:44)
[2018-08-19] MEDS: Sulfamethoxazole/Trimeth DS 1 EACH TABLET PO SCH ×2 (16:13→20:08)
--- NOTE | 2018-08-19 18:05 | OB/GYN Progress Note ---
Date of Encounter: 08/19/18 Time of Encounter: 18:02 - Assessment and Plan (1) S/P section Current Visit: Yes Status: Acute Continue post-op/ care. Patient meeting day 2 milestones Begin Bactrim bid for red, raised, weeping rash on right lower abdomen. POC discussed with Dr. Gustafson. Anticipate discharge tomorrow. (2) Breast feeding status of mother Current Visit: Yes Status: Acute support as needed Will provide breast pump if needed at discharge. (3) Acute blood loss as cause of postoperative anemia Current Visit: Yes Status: Acute Continue daily iron Subjective - Subjective Principal diagnosis: Day 2 status post section Interval history: Patient is doing well today. Ambulating without difficulty. Has been in the nursery with baby due to hypoglycemia in the . Patient states she does not wish to be discharged today as she does not feel ready to go home. She is also complaining of a rash on her abdomen, right side, outside the edges of the CHARLIE dressing and one spot on the right upper thigh. She states she is allergic to blue dye and Chloraprep was used for her surgery but only this one area is affected. Patient states that the area originally was very itchy but is not now. She was given Benadryl earlier in the day but does not want to continue taking that due to . Dr. Gustafson was made aware of rash and advised to begin Bactrim. Date of procedure: 08/17/18 Preop diagnosis: desires repeat , desires sterilization Post-op diagnosis: same Procedure: repeat low transverse, bilateral tubal ligation Surgeon: Ted Tenorio Quantitated Blood Loss: 400 Was there an assistant portfolio manager present: Yes Refractory Bricklayer: Katie Byers Personal Service Representative: Anoop Kiran Anesthesia Type: General section complications: none Disposition: PACU Specimens: Placenta, Right tube segment, Left tube segment - (s) Infant A Delivery Date: 08/17/18 Infant Delivery Time: 08:10 Presentation: vertex Position: OA Route of delivery: other Gender: Male Viability: Viable Pounds: 7 Ounces: 3 Gram Weight: 3.265 kg at 1 minute: 8 at 5 minutes: 9 Specimens collected: cord blood Placenta: spontaneous Cord: 3 umbilical vessels - Narrative Narrative: This patient was taken to the operating room with IV in place. She was then placed on table given spinal anesthesia. Once adequate analgesia was achieved patient was prepped and draped in the usual sterile fashion. Patient's abdomen was taped up. We then proceeded with a Pfannenstiel incision through patient's previous scar. Was carried sharply through the subtenons fatty tissue until the fascial layers reached. The fascia was then nicked in the midline incised bilaterally with the scissors. It was then dissected vertically for exposure. Rectus abdominis musculature was midline. There were dense adhesions at this point. Using a knife blade we were able to get in through the scar tissue and into the abdominal cavity. This area was then bluntly extended. There was excellent hemostasis throughout this entire procedure. A bladder blade was placed at the inferior margin incision. Bladder flap was developed. Bladder blade was placed over the bladder flap and a low transverse incision was then made in the lower uterine segment. Fluid was noted be clear. The 's head was then delivered without difficulty. Breast-feeding was then delivered. The cried immediately upon delivery cord was cut to cut after the cord stopped pulsating. was passed to nurse and has. Cord bloods obtained. Placenta was delivered via uterine massage. There was then uterine lavage. The uterus contracted down nicely. The incision was then closed the Vicryl suture running locking fashion. 2 [id number]'s were placed bilaterally hemostasis. The uterus was placed the pelvic cavity. The pelvic cavity was rinsed thoroughly sterile water 2, all bleeders cauterized. Seeing no bleeding the procedure was terminated. Sponge needle and instrument counts correct 2. The fascia was closed with loop 0 PDS. The suprafascial region was rinsed thoroughly with sterile water 2, all bleeders cauterized. Skin was closed with pino. Because the patient's size a CHARLIE dressing was placed. The blood loss 400 mL patient delivered a male infant weight was 7 lbs. 3 oz. Apgars are 8 at 1 minute and 9 at 5 minutes. Patient reports: appetite normal, voiding normally, pain well controlled, ambulating normally [place]: doing well (had some hypoglycemia issues today), nursing well Objective - Vital Signs Latest vital signs: Vital Signs Temp Pulse Resp BP Pulse Ox 08/19/18 10:00 16 08/19/18 08:09 97.7 F 98 16 104/53 08/18/18 20:40 98.1 F 113 14 119/81 98 Intake and Output 08/19/18 08/19/18 08/19/18 07:59 15:59 23:59 Intake Total 800 / 1220 420 / 1220 Balance 800 / 1220 420 / 1220 Intake: Oral 800 / 1220 420 / 1220 Other: Meal Breakfast Percent of Meal Consumed 100% # Voids 1 Weight 128.367 kg Patient Weight 08/19/18 23:59 Weight 128.367 kg - Exam Lungs: bilateral: normal Chest: Normal S1, Normal S2 Extremities: Present: edema Abdomen: Present: soft, other (See Interval history) Incision: Present: dressed (CHARLIE) Uterus: Present: normal, firm Fundal Height: 0
[2018-08-20] MEDS: Clindamycin 900 MG/50 ML 900 MG/50 ML IV.SOLN IVPB SCH (00:54)
[2018-08-20] MEDS: Ibuprofen 600 MG TABLET PO PRN ×3 (01:49→16:02)
[2018-08-20] MEDS: *HR* OxyCODONE/APAP 5/325 TABLET PO PRN ×4 (01:49→19:38)
[2018-08-20] MEDS: Sulfamethoxazole/Trimeth DS 1 EACH TABLET PO SCH (08:03)
[2018-08-20] MEDS: Prenatal Vit/FA 1 EACH TABLET PO SCH (08:03)
[2018-08-20 08:24] VITALS: BP 104/70
--- NOTE | 2018-08-20 14:39 | Discharge Summary ---
Date of Encounter: 08/20/18 Time of Encounter: 14:37 - Discharge Diagnosis (1) Acute blood loss as cause of postoperative anemia Priority: Primary Status: Acute Comments: discharged home on iron (2) Breast feeding status of mother Priority: Secondary Status: Acute (3) S/P section Priority: Primary Status: Acute Comments: Stable, meeting all PP milestones, tolerates diet, pain well managed on po pain medication, has dermatitis rash from adhesive, desires discharge (4) S/P tubal ligation Priority: Primary Status: Acute - Discharge Medications Prescriptions: New Breast Pump [BREAST PUMP] 1 each .ROUTE AD #1 each Docusate Sodium 100 mg PO BID 30 Days #60 cap Ibuprofen [Ibu] 600 mg PO Q6H PRN #60 tablet PRN Reason: cramping Oxycodone HCl/Acetaminophen [Percocet 5-325 mg Tablet] 1 each PO Q6H PRN 7 Days #28 tablet PRN Reason: Pain Ferrous Sulfate 325 mg PO DAILY #30 tablet Sulfamethoxazole/Trimeth DS [Bactrim Ds] 1 each PO BID #10 tablet DiphenhydraMINE [Benadryl] 25 mg PO Q6HR PRN #10 capsule PRN Reason: Itching No Action Vit Calc,Iron,Folic [ Vitamins] 1 each PO DAILY #90 tablet Levothyroxine 50 mcg PO DAILY Home Medications: Vit Calc,Iron,Folic [ Vitamins] 1 each PO DAILY #90 tablet 12/18/17 [Rx] Levothyroxine 50 mcg PO DAILY 04/16/18 [History] Breast Pump [BREAST PUMP] 1 each .ROUTE AD #1 each 08/19/18 [Rx] Docusate Sodium 100 mg PO BID 30 Days #60 cap 08/19/18 [Rx] Ferrous Sulfate 325 mg PO DAILY #30 tablet 08/19/18 [Rx] Ibuprofen [Ibu] 600 mg PO Q6H PRN #60 tablet 08/19/18 [Rx] Oxycodone HCl/Acetaminophen [Percocet 5-325 mg Tablet] 1 each PO Q6H PRN 7 Days #28 tablet 08/19/18 [Rx] DiphenhydraMINE [Benadryl] 25 mg PO Q6HR PRN #10 capsule 08/20/18 [Rx] Sulfamethoxazole/Trimeth DS [Bactrim Ds] 1 each PO BID #10 tablet 08/20/18 [Rx] Allergies/Adverse Reactions: Allergy/AdvReac Type Severity Reaction Status Date / Time azithromycin [From Zithromax] Allergy Hives Verified 08/17/18 06:13 cephalexin Allergy Anaphylaxis Verified 07/15/18 09:09 clindamycin Allergy Hives Verified 08/17/18 06:13 Erythromycin Base Allergy Hives Verified 08/17/18 06:13 guaifenesin [From Mucinex] Allergy Difficulty Verified 02/18/18 01:18 Breathing Penicillins [PCN] Allergy Rash Verified 12/19/17 20:09 mycins Allergy Anaphylaxis Uncoded 08/17/18 06:13 Data Procedures and tests throughout hospitalization: Laboratory Tests 08/17/18 08/17/18 08/18/18 06:25 06:25 05:00 WBC 11.5 H 8.6 RBC 4.03 3.24 L Hgb 11.8 9.5 L D Hct 35.5 29.9 L MCV 88.1 92.3 MCH 29.3 29.3 MCHC 33.2 31.8 RDW 13.6 13.7 Plt Count 269 207 MPV 9.7 10.0 Immature Gran % 0.9 1.1 Seg Neutrophils % 71.3 70.7 Lymphocytes % 21.4 21.3 Monocytes % 5.1 4.9 Eosinophils % 1.0 1.8 Basophils % 0.3 0.2 Neutrophils # 8.2 6.1 Lymphocytes # 2.5 1.8 Monocytes # 0.6 0.4 Eosinophils # 0.1 0.2 Basophils # 0.0 0.0 Urine Opiates Screen Negative Ur Barbiturates Screen Negative Ur Phencyclidine Scrn Negative Ur Amphetamines Screen Negative U Benzodiazepines Scrn Negative Urine Cocaine Screen Negative U Marijuana (THC) Screen Negative Ur Drug Screen Interp See Below Date of admission: 08/17/18 05:35 Primary care physician: PCP NONE Discharging clinician: Niki Rosales Anticipated date of discharge: 08/20/18 - Patient Status Disposition: Home, Self-Care Condition: Good Overall status at discharge: patient is back to baseline - Discharge Instructions Follow Up With: NONE,PCP [Primary Care Provider] - Ted Tenorio MD [Partnered Physician] - - Diet and Activity Activity: resume usual activities as tolerated Diet: regular diet Hospital Course Reason for admission: section Delivery: section Episiotomy: none Laceration: none Other procedures: tubal ligation complications: none Discharge diagnosis: IUP at term delivered [place] baby: male Hospital course: Section - Date of procedure: 08/17/18 Preop diagnosis: desires repeat , desires sterilization Post-op diagnosis: same Procedure: repeat low transverse, bilateral tubal ligation Surgeon: Ted Fong Blood Loss: 400 Was there an financial sales assistant present: Yes Chemist: Katie Byers Recycling Crew Supervisor: Anoop Kiran Anesthesia Type: General section complications: none Disposition: PACU Specimens: Placenta, Right tube segment, Left tube segment - (s) Infant A Delivery Date: 08/17/18 Delivery Time: 08:10 Presentation: vertex Position: OA Route of delivery: other Gender: Male Viability: Viable Pounds: 7 Ounces: 3 Gram Weight: 3.265 kg at 1 minute: 8 at 5 minutes: 9 Specimens collected: cord blood Placenta: spontaneous Cord: 3 umbilical vessels Stable and meeting all PP [place]. Per report [facility] reviewed by Rosendo Solano CNM Time Attestation: Total time spent providing and/or coordinating discharge services: Time Spent: Less than 30 minutes - VTE Reasons for not Prescribing Prophylaxis: Treatment not Indicated - Low risk for VTE Documentation of Mechanical Device: Intermittent pneumatic compression device Exam - Constitutional Vitals: Temp Pulse Resp BP Pulse Ox 98.1 F 101 18 104/70 100 08/20/18 08:23 08/20/18 08:23 08/20/18 08:23 08/20/18 08:23 08/19/18 19:37 General appearance IM: A&O X 3 - Respiratory Respiratory exam: Present: CTAB - Cardiovascular Cardiovascular exam IM: Present: RRR - GI/Abdominal GI/Abdominal exam IM: soft Incision: intact - Uterine Tone: Firm Uterus Position: At Umbilicus - Extremities Exam Extremities exam IM: Present: normal capillary refill - Neurological Exam Neurological exam: normal gait, oriented X3 - Psychiatric Additional comments: reports stable mood - Skin Additional comments: contact dermatitis rash still present on lower abdomen
== END 2018-08-20 19:41 | disposition home or self-care (01) | DRG 784 ==
LOC: 1NENULAB 05:35 → 1NENUOBS 09:23
PROVIDERS: ADMIT Obstetrics & Gynecology; ATTEND Obstetrics & Gynecology